=== PATIENT | male | born 1990 | race Two or more races ===

== ENCOUNTER 2024-02-25 16:23 | Emergency (ER) | payer OTHER ==
[~2024-02-25] VITALS: Ht 177.8 cm; Wt 68.0 kg
[2024-02-25] MEDS ORDERED: KETOROLAC TROMETHAMINE 30 MG VIAL IM ONE (16:45)
[2024-02-25] MEDS ORDERED: CLINDAMYCIN PHOSPHATE 150 MG/ML (600mg) IM ONE (20:30)
== END 2024-02-25 18:55 | disposition home or self-care (01) ==
LOC: ER 16:24
DX: S91.341A Puncture wound with foreign body, right foot, initial encounter (principal); W26.8XXA Contact with other sharp object(s), not elsewhere classified, initial encounter; Y93.89 Activity, other specified; Y92.832 Beach as the place of occurrence of the external cause

== ENCOUNTER 2025-06-30 19:06 | Emergency (ER) | payer OTHER ==
[~2025-06-30] VITALS: Ht 177.8 cm; Wt 65.8 kg
[2025-06-30 20:14] VITALS: BP 111/52; O2SAT 99
[2025-06-30] MEDS ORDERED: DEXAMETHASONE SODIUM PHOSPHATE 4 MG/ML VIAL IM ONE (20:45)
[2025-06-30] MEDS ORDERED: ORPHENADRINE CITRATE 30 MG/ML AMPUL IM ONE (20:45)
[2025-06-30] MEDS ORDERED: KETOROLAC TROMETHAMINE 30 MG VIAL IM ONE (20:45)
[2025-06-30] MEDS ORDERED: KETOROLAC TROMETHAMINE 30 MG VIAL ONE (20:52)
[2025-06-30] MEDS ORDERED: ORPHENADRINE CITRATE 30 MG/ML AMPUL ONE (20:53)
[2025-06-30] MEDS ORDERED: DEXAMETHASONE SODIUM PHOSPHATE 4 MG/ML VIAL ONE (20:53)
[2025-06-30] MEDS ORDERED: DICLOFENAC SODI50 MG PO (22:23)
[2025-06-30] MEDS ORDERED: MEDROLPACK PO (22:23)
[2025-06-30] MEDS ORDERED: NORFLEX100MG PO (22:23)
== END 2025-06-30 22:46 ==
LOC: ER 19:07
DX: M62.838 Other muscle spasm (principal); M25.512 Pain in left shoulder